=== PATIENT | female | born 1950 | race Caucasian/White ===

== ENCOUNTER 2020-12-29 09:24 | Outpatient (CLI) | payer MEDICARE, SELFPAY ==
--- NOTE | ~2020-12-29 | DEXA_ITS ---
Bone Density Report Name: Aurelio Wright Age: 70 Sex: Female Ethnicity: White Date of : 1950 Indication: postmenopausal; height loss; Referring Provider: Shanice Vidal Study: Bone densitometry was performed. Exam Date: December 29, 2020 Accession number: [id number] Bone Density: Region BMD T-score Z-score Classification AP Spine (L1-L4) 1.316 2.4 4.7 Normal Femoral Neck (Left) 0.647 -1.8 0.1 Osteopenia Total Hip (Left) 0.810 -1.1 0.5 Osteopenia Total Hip Bilateral Avg 0.811 -1.1 0.5 Osteopenia Femoral Neck (Right) 0.661 -1.7 0.2 Osteopenia Total Hip (Right) 0.811 -1.1 0.5 Osteopenia World Health Organization criteria for BMD impression classify patients as: Normal (T-score at or above -1.0), Osteopenia (T-score between -1.0 and -2.5), or Osteoporosis (T-score at or below -2.5). 10-year Fracture Risk(1): Major Osteoporotic Fracture 11% Hip Fracture 2.2% Reported Risk Factors: [place] (), Neck BMD=0.647, BMI=28.4 (1) FRAX(R) Version 3.08. Fracture probability calculated for an untreated patient. Fracture probability may be lower if the patient has received treatment. Previous Exams: Region Exam Age BMD T-score BMD Change BMD Change Date g/cm2 vs Baseline vs Previous AP Spine(L1-L4) 12/29/2020 70 1.316 2.4 0.206(18.6%)# 0.025(1.9%)* 11/17/2018 67 1.291 2.2 0.182(16.4%)# -0.035(-2.7%)* 08/27/2016 65 1.326 2.5 0.217(19.6%)# 0.145(12.3%)# 03/09/2012 61 1.181 1.2 0.072(6.5%)# 0.081(7.3%)# 09/01/2008 57 1.100 0.5 -0.009(-0.8%) 0.013(1.2%) 03/26/2005 54 1.087 0.4 -0.022(-2.0%) -0.022(-2.0%) 03/06/2002 51 1.109 0.6 Total Hip(Left) 12/29/2020 70 0.810 -1.1 -0.067(-7.6%)# -0.024(-2.8%) 11/17/2018 67 0.834 -0.9 -0.043(-4.9%)# -0.025(-3.0%) 08/27/2016 65 0.859 -0.7 -0.018(-2.0%)# 0.030(3.6%)# 03/09/2012 61 0.829 -0.9 -0.047(-5.4%)# -0.046(-5.3%)# 09/01/2008 57 0.875 -0.5 -0.001(-0.1%) -0.023(-2.5%) 03/26/2005 54 0.898 -0.4 0.021(2.4%) 0.021(2.4%) 03/06/2002 51 0.877 -0.5 Total Hip(Right) 12/29/2020 70 0.811 -1.1 -0.091(-10.1%) -0.009(-1.1%) 11/17/2018 67 0.820 -1.0 -0.082(-9.1%)# -0.024(-2.9%) 08/27/2016 65 0.844 -0.8 -0.058(-6.4%)# -0.022(-2.5%)# 03/09/2012 61 0.866 -0.6 -0.036(-4.0%)# -0.039(-4.3%)# 09/01/2008 57 0.906 -0.3 0.003(0.4%) 0.021(2.4%) 03/26/2005 54 0.884 -0.5 -0.018(-2.0%) -0.018(-2.0%) 03/06/2002 51 0.902 -0.3 *Denotes significance at 95% confidence level
--- NOTE | ~2020-12-29 | MM_ITS ---
EXAMINATION: MM screening [facility] BI w matthew HISTORY: Screening mammogram TECHNIQUE: Craniocaudal and mediolateral oblique 3-D tomosynthesis images were obtained and synthetic 2-D images were generated. CAD analysis was submitted and interpreted. COMPARISON: 11/17/2018, 09/22/2017, 08/27/2016 BREAST PARENCHYMAL COMPOSITION: There are scattered areas of fibroglandular density. FINDINGS: There is no evidence of suspicious mass, calcification, or architectural distortion to sugg est malignancy in either breast. There has been no suspicious interval change. IMPRESSION: 1. No mammographic evidence of malignancy. 2. Recommend routine screening mammography in one year. BI-RADS Category 1: Negative Reviewed, dictated and finalized at location A.
== END 2020-12-29 09:25 | disposition home or self-care (01) ==
LOC: ANHIMG 09:26
PROVIDERS: PCP Family Medicine; Visit Provider Physician Assistant
DX: Z12.31 Encounter for screening mammogram for malignant neoplasm of breast (principal); Z78.0 Asymptomatic menopausal state; M85.852 Other specified disorders of bone density and structure, left thigh; M85.851 Other specified disorders of bone density and structure, right thigh
CPT/HCPCS: 77063; 77067; 77080

== ENCOUNTER 2021-09-05 01:32 | Day surgery (SDC) | payer MEDICARE, SELFPAY ==
[2021-08-22 13:30] VITALS: BMI 27.3
[2021-09-05 12:07] VITALS: BP 144/75; PULSE 67; RESP 16; TEMP 36.5; O2SAT 97; BMI 27.5
--- NOTE | 2021-09-05 12:12 | PM.HPGS ---
History of Present Illness History of Present Illness Consent: Risks, benefits, and alternatives have been discussed and questions answered. Patient agrees to proceed with procedure. Chief complaint: history colon polyps Narrative: Aurelio Wright is a 70 year old female Referred for colon cancer screening. She has a family history of colon cancer, her mother had colon cancer. She also had a small polyp removed about 5 years ago. Review of Systems Review of Systems: All systems reviewed & are unremarkable except as noted in HPI and below PMFSH Past Medical History Medical History Bleeding ulcer (~2017) Bone spur Right big toe 2004 Left big toe 2009 Dysplasia of cervix GI bleed due to NSAIDs Heart murmur Hepatitis C antibody test negative (05/16/17) Pacemaker (~2017) Surgical History Surgical History H/O colonoscopy H/O cone biopsy of cervix (~1986) H/O mitral valve repair (~2012) S/P cataract surgery (~05/2021) right eye Status post left foot surgery Family History Family History Mother Carcinoma of colon Hypertension Sibling Hypertension Family history of irritable bowel syndrome Grandparent Family history of cardiovascular disease Diabetes mellitus Father Hypertension Family history of elevated blood lipids Family history of coronary artery disease Other Family history of congenital heart disease Social History Social History Alcohol intake: current Living arrangements: with family Meds Home Medications and Allergies Home Medications Medication Instructions Recorded Confirmed Type aspirin 81 mg tablet,delayed 81 mg PO DAILY 06/17/19 08/22/21 History release loratadine 10 mg tablet 10 mg PO DAILY 06/17/19 08/22/21 History cholecalciferol (vitamin D3) 25 25 mcg PO DAILY 03/10/20 08/22/21 History mcg (1,000 unit) capsule calcium carbonate 600 mg-vitamin 1 tablet PO DAILY tablet 08/09/20 08/22/21 History D3 10 mcg (400 unit) chewable tablet multivitamin 1 tablet PO DAILY 08/09/20 08/22/21 History atorvastatin 10 mg tablet See Rx Instructions .ROUTE 07/20/21 08/22/21 Rx .COMPLEX #90 tablet metoprolol tartrate 25 mg tablet See Rx Instructions .ROUTE 07/20/21 08/22/21 Rx .COMPLEX #90 tablet Allergies Allergy/AdvReac Type Severity Reaction Status Date / Time ibuprofen Allergy Unknown internal Verified 09/05/21 12:17 bleeding NSAIDS (Non-Steroidal Allergy Unknown Gastric Verified 09/05/21 12:17 Anti-Inflamma ulcer with hemorrhage Exam Resp: Auscultation: clear to auscultation bilaterally Cardio: Rate: regular rate Rhythm: regular rhythm GI: GI Palp: Yes Soft to palpation and No Tenderness to palpation present (GI) Assessment and Plan Assessment and plan (1) Colon cancer screening: Code(s): Z12.11 - Encounter for screening for malignant neoplasm of colon Status: Acute Assessment and Plan: Colonoscopy with possible biopsy or polypectomy or cautery or injection of substances.
[2021-09-05] MEDS: LACTATED RINGERS 1,000 ML 150 ML IV CONT (12:28)
--- NOTE | 2021-09-05 12:42 | WPDANESEPPF ---
Anes - Initial Pre Proc Eval Procedure: Operation Date: 09/05/21 13:30 Proposed Procedures p Screening Colonoscopy - Brian Harris MD Date/Time: 09/05/21 12:42 Surgeon: Brian Harris MD Pre Op Diagnosis: history colon polyps Patient Data Age: 70 Gender: F Height: 1.52 m Weight: 64 kg Last Vital Signs Temp 36.5 C 09/05/21 12:07 Pulse 67 09/05/21 12:07 Resp 16 09/05/21 12:07 BP 144/75 H 09/05/21 12:07 Pulse Ox 97 09/05/21 12:07 Allergies Allergy/AdvReac Type Severity Reaction Status Date / Time ibuprofen Allergy Unknown internal Verified 09/05/21 12:17 bleeding NSAIDS (Non-Steroidal Allergy Unknown Gastric Verified 09/05/21 12:17 Anti-Inflamma ulcer with hemorrhage Home Medications Medication Instructions Recorded Confirmed Type aspirin 81 mg tablet,delayed 81 mg PO DAILY 06/17/19 09/05/21 History release loratadine 10 mg tablet 10 mg PO DAILY 06/17/19 09/05/21 History cholecalciferol (vitamin D3) 25 25 mcg PO DAILY 03/10/20 09/05/21 History mcg (1,000 unit) capsule calcium carbonate 600 mg-vitamin 1 tablet PO DAILY tablet 08/09/20 09/05/21 History D3 10 mcg (400 unit) chewable tablet multivitamin 1 tablet PO DAILY 08/09/20 09/05/21 History atorvastatin 10 mg tablet See Rx Instructions .ROUTE 07/20/21 09/05/21 Rx .COMPLEX #90 tablet metoprolol tartrate 25 mg tablet See Rx Instructions .ROUTE 07/20/21 09/05/21 Rx .COMPLEX #90 tablet Patient hx anesthesia problems: none Family hx anesthesia problems: none Results Review: All pre-operative results and documents have been reviewed as part of the pre-operative evaluation. [facility] Past Medical History Medical History Bleeding ulcer (~2017) Bone spur Right big toe 2004 Left big toe 2009 Dysplasia of cervix GI bleed due to NSAIDs Heart murmur Hepatitis C antibody test negative (05/16/17) Pacemaker (~2017) Surgical History Surgical History H/O colonoscopy H/O cone biopsy of cervix (~1986) H/O mitral valve repair (~2012) S/P cataract surgery (~05/2021) right eye Status post left foot surgery Family History Family History Mother Carcinoma of colon Hypertension Sibling Hypertension Family history of irritable bowel syndrome Grandparent Family history of cardiovascular disease Diabetes mellitus Father Hypertension Family history of elevated blood lipids Family history of coronary artery disease Other Family history of congenital heart disease Social History Social History Alcohol intake: current Living arrangements: with family [facility]ust[facility] - Ten Final PreProcedure Day of Procedure 09/05/21 12:42 Patient weight: overweight Heart: regular rate and rhythm Lungs: clear to auscultation and normal air movement Airway: Mallampati scale class II Neurological: alert and oriented Last oral intake: >/= 8 hours ASA classification: III Emergent: no Anesthetic plan: proceed Anesthesia type and monitoring: general GIVS and standard monitoring Results Review: All pre-operative results and documents have been reviewed as part of the pre-operative evaluation. Informed Consent: The patient's anesthetic plan and its attendant risks and benefits were discussed with the patient/family/POA. Questions were solicited and answers provided to the satisfaction of the patient/family/POA.
[2021-09-05 13:04] VITALS: BP 100/64; PULSE 62; RESP 20; O2SAT 97
[2021-09-05 13:14] VITALS: BP 102/64; PULSE 60; RESP 19; O2SAT 97
[2021-09-05 13:24] VITALS: BP 104/64; PULSE 62; RESP 19; O2SAT 96
== END 2021-09-05 13:40 | disposition home or self-care (01) ==
PROVIDERS: PCP Family Medicine; Visit Provider Internal Medicine Gastroenterology
PROC: 0DJD8ZZ Inspection of Lower Intestinal Tract, Via Natural or Artificial Opening Endoscopic (ICD-10-PCS; CPT 45378; principal; 2021-09-05 13:30)
DX: Z12.11 Encounter for screening for malignant neoplasm of colon (principal); Z80.0 Family history of malignant neoplasm of digestive organs; R01.1 Cardiac murmur, unspecified; K64.8 Other hemorrhoids; Z95.0 Presence of cardiac pacemaker
CPT/HCPCS: G0105; J2704; J7120

== ENCOUNTER 2021-09-20 14:53 | Outpatient (RCR) | payer MEDICARE, SELFPAY ==
[2021-09-20] MEDS: FAMOTIDINE 20 MG TABLET PO (15:20)
[2021-09-20] MEDS: ACETAMINOPHEN 325 MG TABLET 650 MG PO (15:20)
[2021-09-20] MEDS: diphenhydrAMINE HCl CAP 25 MG CAPSULE PO (15:20)
[2021-09-20] MEDS: BEBTELOVIMAB 175 MG/2 ML VIAL IV PUSH (15:40)
[2021-09-20 15:42] VITALS: BP 142/84; PULSE 80; RESP 20; TEMP 36.4; O2SAT 96
[2021-09-20 16:23] VITALS: BP 123/69; PULSE 73; RESP 16; O2SAT 100
== END 2021-09-20 16:00 ==
LOC: AMCINF 14:53
PROVIDERS: PCP Physician Assistant; Visit Provider Internal Medicine Hematology & Oncology
DX: U07.1 COVID-19 (principal); I10 Essential (primary) hypertension
CPT/HCPCS: A9270; M0222; Q0222

== ENCOUNTER 2021-10-03 13:19 | Emergency (ER) | payer MEDICARE, SELFPAY ==
--- NOTE | ~2021-10-03 | XR_ITS ---
EXAMINATION: XR abdomen/kub 1V DATE: 10/03/2021 14:05 INDICATION: Left abdominal pain. Hematuria. TECHNIQUE: A supine view of the abdomen was obtained. COMPARISON: Abdomen radiographs 02/23/2018 FINDINGS: There are no dilated loops of bowel. There is a small volume of stool in the colon. There i s no visible urolithiasis. IMPRESSION: 1. No visible urolithiasis. Reviewed, dictated and finalized at location A. IMPRESSION: 1. No visible urolithiasis.
[2021-10-03 13:25] VITALS: BP 176/87; PULSE 80; RESP 16; TEMP 36; O2SAT 98
--- NOTE | 2021-10-03 13:45 | ED.ABDPAIN ---
HPI - Abdominal Pain General Chief Complaint: Abdominal Pain Stated Complaint: L SIDE ABD PAIN Time Seen by Provider: 10/03/21 13:45 Source: patient, family, RN notes reviewed and old records reviewed Mode of arrival: ambulatory Limitations: no limitations History of Present Illness HPI narrative: 70 year old female who presents to [facility] care accompanied by spouse with complaints of left sided abdominal pain which started yesterday afternoon. Patient reports that pain is intermittent, colicky achy and at times sharp and does radiate to the left flank area patient denies any complaints of constipation or diarrhea she has had no complaints of changes in her bowel pattern did have a colonoscopy 1 month ago. Patient does states some nausea when she has pain denies any episodes of vomiting no known fevers chills or sweats MD elicited complaint: abdominal pain Onset (ago): day(s) (1) Location: LLQ Radiation: L flank Related Data Home Medications Medication Instructions Recorded Confirmed aspirin 81 mg tablet,delayed 81 mg PO DAILY 06/17/19 09/05/21 release loratadine 10 mg tablet (Claritin) 10 mg PO DAILY 06/17/19 09/05/21 cholecalciferol (vitamin D3) 25 25 mcg PO DAILY 03/10/20 09/05/21 mcg (1,000 unit) capsule calcium carbonate 600 mg-vitamin 1 tablet PO DAILY 08/09/20 09/05/21 D3 10 mcg (400 unit) chewable tablet (Calcium 600 with Vitamin D3) multivitamin 1 tablet PO DAILY 08/09/20 09/05/21 Allergies Allergy/AdvReac Type Severity Reaction Status Date / Time ibuprofen Allergy Unknown internal Verified 09/05/21 12:17 bleeding NSAIDS (Non-Steroidal Allergy Unknown Gastric Verified 09/05/21 12:17 Anti-Inflamma ulcer with hemorrhage Review of Systems Review of Systems: CONSTITUTIONAL: Denies fever, chills, or sweats. EYES: Denies visual changes, redness, or discharge. ENT: Denies rhinorrhea, congestion, sore throat, or otalgia. CARDIOVASCULAR: Denies chest pain, palpitations, or edema. RESPIRATORY: Denies cough or dyspnea. GASTROINTESTINAL: Positive for left abdominal pain, nausea,no vomiting, or diarrhea. GENITOURINARY: Denies dysuria positive for microscopic hematuria. SKIN: Denies rash or itching. MUSCULOSKELETAL:reports some radiation of pain to left flank area no other complaints of back pain,no oint pain, or myalgia. NEUROLOGIC: Denies headache, numbness, or weakness. PSYCHIATRIC: Denies anxiety or depression. [facility] Past Medical History Medical History Bleeding ulcer (~2017) Bone spur Right big toe 2005 Left big toe 2009 Dysplasia of cervix GI bleed due to NSAIDs Heart murmur Hepatitis C antibody test negative (05/16/17) Pacemaker (~2017) Surgical History Surgical History H/O colonoscopy H/O cone biopsy of cervix (~1986) H/O mitral valve repair (~2012) S/P cataract surgery (~05/2021) right eye Status post left foot surgery Family History Family History Mother Carcinoma of colon Hypertension Sibling Hypertension Family history of irritable bowel syndrome Grandparent Family history of cardiovascular disease Diabetes mellitus Father Hypertension Family history of elevated blood lipids Family history of coronary artery disease Other Family history of congenital heart disease Social History Social History Alcohol intake: current Comments At time of signature, agree with nursing past medical, surgical, social and family history. There is no relevant family history pertinent to the presenting complaint Exam Narrative: GENERAL: Well-appearing, well-nourished, and in no acute distress. HEAD: Normocephalic, atraumatic. EYES: PERRLA and EOMI. ENT: Nares clear, no rhinorrhea or epistaxis. Mucous membranes moist. NECK: Supple.no lymphadenopathy
== END 2021-10-03 14:39 | disposition home or self-care (01) ==
PROVIDERS: Emergency Provider Registered Nurse; PCP Family Medicine
DX: R10.9 Unspecified abdominal pain (principal); R31.9 Hematuria, unspecified; Z79.82 Long term (current) use of aspirin; Z95.0 Presence of cardiac pacemaker
CPT/HCPCS: 74018; 81003; 99213; G0463

== ENCOUNTER 2021-10-05 15:40 | Emergency (ER) | payer MEDICARE, SELFPAY ==
--- NOTE | ~2021-10-05 | CT_ITS ---
EXAMINATION: CT abdomen pelvis wo con DATE: 10/05/2021 17:39 INDICATION: Left flank pain TECHNIQUE: Computed tomography (CT) of the abdomen and pelvis was performed without intravenous contr ast. The dose-length product (DLP) was 363.20 mGy-cm. Automated exposure control and iterative recons truction technique were employed. COMPARISON: None FINDINGS: There is a large hiatal hernia causing passive atelectasis in the left lower lobe. Cardiome mickey is noted. The liver, spleen, pancreas, gallbladder, and adrenal glands are normal. The right kid max is unremarkable. There are peripelvic cysts of the otherwise normal kidneys. No stones are identi fied in the kidneys, ureters, or bladder. There is no hydronephrosis or hydroureter. No pathologicall y enlarged abdominal or pelvic lymph nodes are identified. There is severe lumbar spondylosis. IMPRESSION: 1. No CT correlate for the patient's symptoms. 2. Large hiatal hernia. Reviewed, dictated and finalized at location F.
[2021-10-05 16:09] VITALS: BP 128/88; PULSE 76; RESP 18; TEMP 36.4; O2SAT 96
[2021-10-05 16:22] LABS: Basophils Percent Auto 0.4 % (0.2-1.2); Eosinophils Absolute Auto 0.1 K/mm3 (0-0.3); Eosinophils Percent Auto 2.3 % (0-4.4); Hemoglobin 13.5 g/dL (12.0-15.0); Immature Granulocyte Absolute 0.01 K/mm3 (0.00-0.031); Immature Granulocyte Percent A 0.2 % (0-0.5); Lymphocytes Absolute Auto 1.37 K/mm3 (0.9-3.2); Lymphocytes Percent Auto 24.7 % (18.3-44.2); Mean Corpuscular HGB Conc 32.9 g/dl (32-36); Mean Corpuscular Hemoglobin 30.3 pg (26-34); Mean Corpuscular Volume 91.9 fl (80-100); Mean Platelet Volume 9.4 fl (7.4-10.4); Monocytes Absolute Auto 0.5 K/mm3 (0.1-0.6); Monocytes Percent Auto 9.2 % (2.6-8.5); Neutrophils Absolute Auto 3.5 K/mm3 (1.3-6.7); Neutrophils Percent Auto 63.2 % (45.5-73.1); Platelet Count Result 187 k/mm3 (150-375); Red Blood Count 4.46 M/mm3 (4.2-5.4); Red Cell Distribution Width 13.6 % (11.5-14.5); White Blood Count 5.6 K/mm3 (4.5-10.0)
[2021-10-05 16:34] LABS: Alanine Aminotransferase 22 U/L (6-35); Albumin Level 4.1 g/dL (3.5-5.1); Alkaline Phosphatase 89 U/L (38-126); Anion Gap 5 mmol/L (8-16); Aspartate Amino Transferase 28 U/L (14-36); Bilirubin,Total 0.2 mg/dL (0.2-1.3); Blood Urea Nitrogen 18 mg/dL (7-17); Calcium 8.9 mg/dL (8.4-10.2); Carbon Dioxide 28 mmol/L (22-30); Chloride 102 mmol/L (98-107); Estimated CRCL calculation 41 ml/min; Estimated Glomerular Filt Rate > 60; Glucose 162 mg/dL (65-110); Potassium 3.6 mmol/L (3.4-5.0); Sodium 135 mmol/L (137-145)
[2021-10-05 16:34] LABS: Appearance Urine Clear (Clear); Bilirubin Urine Negative (Negative); Blood Urine 1+ (Negative); Color Urine Yellow (Yellow); Glucose Urine UA Negative (Negative); Ketones Urine Negative (Negative); Leukocyte Esterase Ur Negative LEU/UL (Negative); Nitrate Urine Negative (Negative); Protein Urine Negative (Negative); Specific Grav Ur >= 1.030 (1.001-1.035); Urobilinogen Urine 0.2 mg/dL (<2.0)
[2021-10-05 16:37] LABS: Add Urine Microscopic? YES; Mucus Urine Rare /lpf; Squamous Epithelial Cell Urine Rare /hpf (Few); WBC Urine 0-3 /hpf
[2021-10-05 17:14] VITALS: BP 132/78; PULSE 76; RESP 16; TEMP 36.8; O2SAT 100
--- NOTE | 2021-10-05 17:22 | ED.ABDPAIN ---
HPI - Abdominal Pain General Chief Complaint: Abdominal Pain Stated Complaint: L BACK/ABD PAIN Time Seen by Provider: 10/05/21 16:44 History of Present Illness HPI narrative: 70 y/o female presents to the ER for ongoing problems with left flank pain. She says it is left flank and left lower quadrant. She says that pain started on Friday. It has been coming and going. She gets nauseated when the pain comes on. She was seen at an urgent care and they thought she may have a kidney stone. She says that she felt better yesterday but then it came back again today. She denies any dysuria or hematuria. No fever or chills. Bowels have been normal. She has not had any vomiting. She has been eating and drinking fair. Related Data Home Medications Medication Instructions Recorded Confirmed aspirin 81 mg tablet,delayed 81 mg PO DAILY 06/17/19 09/05/21 release loratadine 10 mg tablet (Claritin) 10 mg PO DAILY 06/17/19 09/05/21 cholecalciferol (vitamin D3) 25 25 mcg PO DAILY 03/10/20 09/05/21 mcg (1,000 unit) capsule calcium carbonate 600 mg-vitamin 1 tablet PO DAILY 08/09/20 09/05/21 D3 10 mcg (400 unit) chewable tablet (Calcium 600 with Vitamin D3) multivitamin 1 tablet PO DAILY 08/09/20 09/05/21 Allergies Allergy/AdvReac Type Severity Reaction Status Date / Time ibuprofen Allergy Unknown internal Verified 10/05/21 18:02 bleeding NSAIDS (Non-Steroidal Allergy Unknown Gastric Verified 10/05/21 18:02 Anti-Inflamma ulcer with hemorrhage Review of Systems Review of Systems: CONSTITUTIONAL: Denies fever, chills, or sweats. EYES: Denies visual changes, redness, or discharge. ENT: Denies rhinorrhea, congestion, sore throat, or otalgia. CARDIOVASCULAR: Denies chest pain, palpitations, or edema. RESPIRATORY: Denies cough or dyspnea. GASTROINTESTINAL: Positive for left abdominal pain/left flank pain, nausea,no vomiting, or diarrhea. GENITOURINARY: Denies dysuria or hematuria SKIN: Denies rash or itching. MUSCULOSKELETAL:no extremity pain or injury NEUROLOGIC: Denies headache, numbness, or weakness. PSYCHIATRIC: Denies anxiety or depression. [facility] Past Medical History Medical History Bleeding ulcer (~2017) Bone spur Right big toe 2005 Left big toe 2009 Dysplasia of cervix GI bleed due to NSAIDs Heart murmur Hepatitis C antibody test negative (05/16/17) Pacemaker (~2017) Surgical History Surgical History H/O colonoscopy H/O cone biopsy of cervix (~1986) H/O mitral valve repair (~2012) S/P cataract surgery (~05/2021) right eye Status post left foot surgery Family History Family History Mother Carcinoma of colon Hypertension Sibling Hypertension Family history of irritable bowel syndrome Grandparent Family history of cardiovascular disease Diabetes mellitus Father Hypertension Family history of elevated blood lipids Family history of coronary artery disease Other Family history of congenital heart disease Social History Social History Alcohol intake: current Exam Narrative: GENERAL: Well-appearing, well-nourished, and in no acute distress. HEAD: Normocephalic, atraumatic. EYES: PERRLA and EOMI. ENT: Nares clear, no rhinorrhea or epistaxis. Mucous membranes moist. NECK: Supple.no lymphadenopathy CHEST: Clear to auscultation. No respiratory distress.SAO2 98% on room air HEART: Regular rate and rhythm. murmur heard. Normal peripheral pulses. ABDOMEN: Soft, tender to left abdomen intermittent with radiation to left flank some nausea with pain, no vomiting or diarrhea. nondistended, normal active bowel sounds. EXTREMITIES: Normal range of motion. No edema. SKIN: Warm, dry, no rash. NEURO: No focal deficits. Alert and oriented x3. Course Lisa
[2021-10-05] MEDS: MORPHINE SULFATE (*CRX) 4 MG/ML INJ IV PUSH (18:02)
[2021-10-05] MEDS: ONDANSETRON INJ 4 MG/2 ML VIAL IV PUSH (18:02)
[2021-10-05 18:43] LABS: Lipase 89 U/L (23-300)
[2021-10-05 18:44] LABS: Lactic Acid Reflex 1.2 mmol/L (0.7-2.0)
== END 2021-10-05 19:15 | disposition home or self-care (01) ==
PROVIDERS: Emergency Medicine; Emergency Provider Nurse Practitioner Family; PCP Family Medicine
DX: R10.32 Left lower quadrant pain (principal)
CPT/HCPCS: 36415; 74176; 80053; 81001; 83605; 83690; 85025; 96374; 96375; 99284; J2270; J2405

== ENCOUNTER 2021-10-07 18:27 | Emergency (ER) | payer MEDICARE, SELFPAY ==
--- NOTE | ~2021-10-07 | XR_ITS ---
EXAM: XR abdomen/kub 1V DATE: 10/07/2021 19:21 HISTORY: pain, constipation . COMPARISON: None available. FINDINGS: Clear lung bases. Large hiatal hernia. Normal bowel gas pattern. No organomegaly. No abnor mal abdominal calcification. Severe degenerative lumbar change. Partially visualized pacer wires and sternotomy wires. IMPRESSION: No radiographic evidence of obstruction or ileus. Reviewed, dictated and finalized at location K.
[2021-10-07 18:29] VITALS: BP 166/94; PULSE 75; RESP 16; TEMP 36.4; O2SAT 100
--- NOTE | 2021-10-07 19:39 | PC.NURSE ---
Report received from PRINCE Cox. This nurse assumed care of patient at this time.
--- NOTE | 2021-10-07 20:46 | ED.GENADULT ---
HPI - General Adult General Chief complaint: Abdominal Pain Stated complaint: abd pain Time Seen by Provider: 10/07/21 18:40 History of Present Illness HPI narrative: Patient is a 70-year-old female who presents ER with left-sided abdominal pain. Intermittent over the last few days. She has been seen in urgent care in the ER for this. She has had an unremarkable CT scan. She reports mild constipation since 2 days ago likely related to her [place]. No fevers or chills or sweats. No urinary frequency urgency or dysuria. Occasionally has relief of pain with [place]. She also reports that she is had more gas has been belching more often than typical. Pain will radiate towards her back. No aggravating factors. Related Data Home Medications Medication Instructions Recorded Confirmed aspirin 81 mg tablet,delayed 81 mg PO DAILY 06/17/19 09/05/21 release loratadine 10 mg tablet (Claritin) 10 mg PO DAILY 06/17/19 09/05/21 cholecalciferol (vitamin D3) 25 25 mcg PO DAILY 03/10/20 09/05/21 mcg (1,000 unit) capsule calcium carbonate 600 mg-vitamin 1 tablet PO DAILY 08/09/20 09/05/21 D3 10 mcg (400 unit) chewable tablet (Calcium 600 with Vitamin D3) multivitamin 1 tablet PO DAILY 08/09/20 09/05/21 Allergies Allergy/AdvReac Type Severity Reaction Status Date / Time ibuprofen Allergy Unknown internal Verified 10/07/21 18:38 bleeding NSAIDS (Non-Steroidal Allergy Unknown Gastric Verified 10/07/21 18:38 Anti-Inflamma ulcer with hemorrhage Review of Systems Review of Systems: All systems reviewed & are unremarkable except as noted in HPI and below Constitutional: Constitutional: Denies chills and Denies fever(s) ENT: Denies nasal congestion and Denies sore throat Cardiovascular: Cardiovascular: Denies chest pain, Denies rapid heart rate and Denies radiating jaw, neck or arm pain Gastrointestinal: Gastrointestinal: Reports abdominal pain, Reports constipation, Denies diarrhea, Denies nausea and Denies vomiting Genitourinary: Genitourinary: Denies nocturia, Denies dysuria and Denies pelvic pain PMFSH Past Medical History Medical History Bleeding ulcer (~2018) Bone spur Right big toe 2004 Left big toe 2009 Dysplasia of cervix GI bleed due to NSAIDs Heart murmur Hepatitis C antibody test negative (05/16/17) Pacemaker (~2017) Surgical History Surgical History H/O colonoscopy H/O cone biopsy of cervix (~1986) H/O mitral valve repair (~2012) S/P cataract surgery (~05/2021) right eye Status post left foot surgery Family History Family History Mother Carcinoma of colon Hypertension Sibling Hypertension Family history of irritable bowel syndrome Grandparent Family history of cardiovascular disease Diabetes mellitus Father Hypertension Family history of elevated blood lipids Family history of coronary artery disease Other Family history of congenital heart disease Social History Social History Alcohol intake: current Exam Narrative: GENERAL: Well-appearing, well-nourished, and in no acute distress. HEAD: Normocephalic, atraumatic. CHEST: Clear to auscultation. No respiratory distress. HEART: Regular rate and rhythm. Normal peripheral pulses. ABDOMEN: Soft, nontender, nondistended. EXTREMITIES: Normal range of motion. No edema. SKIN: Warm, dry, no rash. NEURO: Alert and oriented x3. PSYCH: Normal mood and affect. Course Course Emergency Course: Patient resting comfortably. Discussed that symptoms may be related to her hiatal hernia especially given her belching and left side discomfort. Recommend smaller meals as well as acid reflux medication. We also some Bentyl for her discomfort. I reviewed her previous labs and imaging.
[2021-10-07] MEDS: DICYCLOMINE HCL 10 MG CAPSULE 20 MG PO (20:51)
[2021-10-07 20:52] VITALS: BP 147/94; PULSE 75; RESP 17; O2SAT 98
[2021-10-07] MEDS: HYDROcodone/acetaminophen (*CRX) 5-325 MG TABLET 1 TAB PO (21:48)
== END 2021-10-07 21:53 | disposition home or self-care (01) ==
PROVIDERS: Emergency Provider Emergency Medicine; PCP Family Medicine
DX: K44.9 Diaphragmatic hernia without obstruction or gangrene (principal); R01.1 Cardiac murmur, unspecified; Z79.82 Long term (current) use of aspirin; Z95.0 Presence of cardiac pacemaker; Z98.41 Cataract extraction status, right eye
CPT/HCPCS: 74018; 99283; A9270

== ENCOUNTER 2022-02-25 14:25 | Outpatient (CLI) | payer MEDICARE, SELFPAY ==
--- NOTE | ~2022-02-25 | MM_ITS ---
EXAMINATION: MM screening [facility] BI w matthew HISTORY: Screening mammogram TECHNIQUE: Craniocaudal and mediolateral oblique 3-D tomosynthesis images were obtained and synthetic 2-D images were generated. CAD analysis was submitted and interpreted. COMPARISON: 12/29/2020, 11/17/2018, 09/22/2017 BREAST PARENCHYMAL COMPOSITION: There are scattered areas of fibroglandular density. FINDINGS: No suspicious mass, calcification, or architectural distortion are identified in either key ast to suggest malignancy. There has been no suspicious interval change. IMPRESSION: 1. No mammographic evidence of malignancy. 2. Recommend routine screening mammography in one year. BI-RADS Category 1: Negative Reviewed, dictated and finalized at location A.
== END 2022-02-25 14:26 | disposition home or self-care (01) ==
LOC: ANHIMG 14:26
PROVIDERS: PCP Family Medicine; Visit Provider Family Medicine
DX: Z12.31 Encounter for screening mammogram for malignant neoplasm of breast (principal)
CPT/HCPCS: 77063; 77067

== ENCOUNTER → 2022-08-13 10:57 | Outpatient (CLI) | payer MEDICARE, SELFPAY ==
--- NOTE | ~2022-08-13 | XR_ITS ---
EXAMINATION: XR finger 2nd RT min 2V DATE: 08/13/2022 11:16 INDICATION: Right hand second digit swelling. TECHNIQUE: 4 views of right hand second digit were obtained. COMPARISON: Right wrist radiographs 12/28/2018 FINDINGS: Bone alignment is normal. No fracture. There is moderate osteoarthritis of second metacarpo phalangeal joint and second proximal and distal interphalangeal joints. There is soft tissue swelling of the second digit. IMPRESSION: 1. Polyarticular osteoarthritis. Reviewed, dictated and finalized at location A.
== END ==
PROVIDERS: PCP Family Medicine; Visit Provider Family Medicine
DX: M79.89 Other specified soft tissue disorders (principal); M19.041 Primary osteoarthritis, right hand
CPT/HCPCS: 73140

== ENCOUNTER 2022-11-24 08:30 | Emergency (ER) | payer MEDICARE, SELFPAY ==
[2022-11-24 08:39] VITALS: BP 151/85; PULSE 66; RESP 16; TEMP 36.4; O2SAT 98
--- NOTE | 2022-11-24 08:39 | ED.FEMALEGU ---
HPI - Female Genitourinary General Chief complaint: Urogenital-Female Stated complaint: uti Time Seen by Provider: 11/24/22 09:01 Source: patient and RN notes reviewed Mode of arrival: ambulatory Limitations: no limitations History of Present Illness HPI Narrative: 71-year-old female presents with concern for urinary frequency, dysuria, urgency, suprapubic discomfort. She reports chills and trouble sleeping last night. She denies nausea, vomiting, back pain, fever. MD elicited complaint: UTI Related Data Home Medications Medication Instructions Recorded Confirmed aspirin 81 mg tablet,delayed 81 mg PO DAILY 06/17/19 11/24/22 release loratadine 10 mg tablet (Claritin) 10 mg PO DAILY 06/17/19 11/24/22 cholecalciferol (vitamin D3) 25 25 mcg PO DAILY 03/10/20 11/24/22 mcg (1,000 unit) capsule calcium carbonate 600 mg-vitamin 1 tablet PO DAILY 08/09/20 11/24/22 D3 10 mcg (400 unit) chewable tablet (Calcium 600 with Vitamin D3) multivitamin 1 tablet PO DAILY 08/09/20 11/24/22 rivaroxaban 20 mg tablet (Xarelto) 20 mg PO DAILY 04/09/22 11/24/22 Allergies Allergy/AdvReac Type Severity Reaction Status Date / Time ibuprofen Allergy Unknown internal Verified 11/24/22 08:47 bleeding NSAIDS (Non-Steroidal Allergy Unknown Gastric Verified 11/24/22 08:47 Anti-Inflamma ulcer with hemorrhage Review of Systems Review of Systems: CONSTITUTIONAL: Denies malaise, sweats, or fever. Reports chills CARDIOVASCULAR: Denies chest pain, palpitations, or edema. RESPIRATORY: Denies cough or dyspnea. GASTROINTESTINAL: Denies abdominal pain, nausea, vomiting, diarrhea GENITOURINARY: Reports dysuria, frequency, urgency, suprapubic discomfort. Denies flank pain or hematuria. SKIN: Denies rash or itching. MUSCULOSKELETAL: Denies back pain or myalgia. All systems reviewed & are unremarkable except as noted in HPI and below PMFSH Past Medical History Medical History Bleeding ulcer (~2018) Bone spur Right big toe 2004 Left big toe 2009 Dysplasia of cervix GI bleed due to NSAIDs Heart murmur Hepatitis C antibody test negative (05/16/17) Pacemaker (~2017) Surgical History Surgical History H/O colonoscopy H/O cone biopsy of cervix (~1986) H/O mitral valve repair (~2012) S/P cataract surgery (~05/2021) right eye S/P placement of cardiac pacemaker Status post left foot surgery Family History Family History Mother Carcinoma of colon Hypertension Sibling Hypertension Family history of irritable bowel syndrome Grandparent Family history of cardiovascular disease Diabetes mellitus Father Hypertension Family history of elevated blood lipids Family history of coronary artery disease Other Family history of congenital heart disease Social History Social History (Updated 04/09/22 @ 09:15 by Shea Jeronimo [facility]) Smoking status: Never smoker Alcohol intake: current Substance use: never Substance use type: does not use Lack of Transportation: No Lack of Food: Never True Current Housing: I Have Housing Concerned About Future Housing: No Difficulty Paying Gas/Electric Bills: No Difficulty Paying for Meds: No Currently Unemployed: No Education: Master's Degree or Higher Difficulty w/ Childcare or Family Care: No Living arrangements: with family Occupation/Education: retired Gender identity (if verbalized by the patient): Female Comments At time of signature, agree with nursing past medical, surgical, social and family history. There is no relevant family history pertinent to the presenting complaint Exam Narrative: GENERAL: Well-appearing, well-nourished, and in no acute distress. HEAD: Normocephalic. EYES: PERRLA, conjunctivae clear. NECK: Supple. No lymphadenopathy CHEST: C
--- NOTE | 2022-11-24 08:50 | PC.NURSE ---
0845- pt comes out of the restroom, and states that she missed the cup while urinating, and did only catch a few dribbles. instructed pt that we would try to run it on machine, but if we would need to send it for culture we would need to collect an additional specimen. pt verbalized understanding.
== END 2022-11-24 09:11 | disposition home or self-care (01) ==
PROVIDERS: Emergency Provider Nurse Practitioner; PCP Family Medicine
DX: N39.0 Urinary tract infection, site not specified (principal); R01.1 Cardiac murmur, unspecified; Z95.5 Presence of coronary angioplasty implant and graft; Z79.82 Long term (current) use of aspirin
CPT/HCPCS: 81003; 87086; 87088; 99213; G0463

== ENCOUNTER 2023-04-22 07:53 | Outpatient (CLI) | payer MEDICARE, SELFPAY ==
--- NOTE | ~2023-04-22 | DEXA_ITS ---
Bone Density Report Name: GLENN CASILLAS Age: 72 Sex: Female Ethnicity: White Date of : 1950 Indication: osteopenia; height loss; postmenopausal Referring Provider: FORTUNATO LEMUS Study: Bone densitometry was performed. Exam Date: April 22, 2023 Accession number: [id number] Bone Density: Region BMD T-score Z-score Classification AP Spine(L1-L4) 1.298 2.3 4.6 Normal Femoral Neck (Left) 0.608 -2.2 -0.1 Osteopenia Total Hip (Left) 0.782 -1.3 0.4 Osteopenia Femoral Neck (Right) 0.668 -1.6 0.4 Osteopenia Total Hip (Right) 0.800 -1.2 0.6 Osteopenia Total Hip Mean 0.791 -1.3 0.5 Osteopenia World Health Organization criteria for BMD impression classify patients as: Normal (T-score at or above -1.0), Osteopenia (T-score between -1.0 and -2.5), or Osteoporosis (T-score at or below -2.5). 10-year Fracture Risk(1): Major Osteoporotic Fracture 8.4% Hip Fracture 2.6% Reported Risk Factors: [place] (), Neck BMD=0.608, BMI=10.8 Input outside FRAX(R) limits. Adjusted to:Weight=25 kg (1) FRAX(R) Version 3.08. Fracture probability calculated for an untreated patient. Fracture probability may be lower if the patient has received treatment. Previous Exams: Region Exam Age BMD T-score BMD Change BMD Change Date g/cm2 vs Baseline vs Previous AP Spine (L1-L4) 04/22/2023 72 1.298 2.3 0.117 (9.9%)# -0.018 (-1.4%) 12/29/2020 70 1.316 2.4 0.134 (11.4%)# 0.025 (1.9%)* 11/17/2018 67 1.291 2.2 0.110 (9.3%)# -0.035 (-2.7%) 08/27/2016 65 1.326 2.5 0.145 (12.3%)# 0.145 (12.3%)# 03/09/2012 61 1.181 1.2 Total Hip(Left) 04/22/2023 72 0.782 -1.3 -0.047 (-5.7%) -0.028 (-3.5%) 12/29/2020 70 0.810 -1.1 -0.019 (-2.3%) -0.024 (-2.8%) 11/17/2018 67 0.834 -0.9 0.004 (0.5%)# -0.025 (-3.0%) 08/27/2016 65 0.859 -0.7 0.030 (3.6%)# 0.030 (3.6%)# 03/09/2012 61 0.829 -0.9 Total Hip(Right) 04/22/2023 72 0.800 -1.2 -0.066 (-7.7%) -0.011 (-1.4%) 12/29/2020 70 0.811 -1.1 -0.055 (-6.4%) -0.009 (-1.1%) 11/17/2018 67 0.820 -1.0 -0.046 (-5.4%) -0.024 (-2.9%) 08/27/2016 65 0.844 -0.8 -0.022 (-2.5%) -0.022 (-2.5%) 03/09/2012 61 0.866 -0.6 *Denotes significance at 95% confidence level, LSC for AP Spine = 0.022 g/cm2, LSC for Total Hip = 0.027 g/cm2 # Denotes dissimilar scan types or analysis methods Clinical Information Provided by Patient: Has used the following medications: Vitamin D, Calcium Patient luis hoskins
--- NOTE | ~2023-04-22 | MM_ITS ---
EXAMINATION: MM screening elvin BI w matthew HISTORY: Screening mammogram TECHNIQUE: Craniocaudal and mediolateral oblique 3-D tomosynthesis images were obtained and synthetic 2-D images were generated. CAD analysis was submitted and interpreted. COMPARISON: 02/21/2022, 12/29/2020, 11/17/2018 bilateral screening mammogram examinations BREAST PARENCHYMAL COMPOSITION: There are scattered areas of fibroglandular density. FINDINGS: There is no evidence of suspicious mass, calcification, or architectural distortion to sugg est malignancy in either breast. There has been no suspicious interval change. IMPRESSION: 1. No mammographic evidence of malignancy. 2. Recommend routine screening mammography in one year. BI-RADS Category 1: Negative Reviewed, dictated and finalized at location A. [employer]
== END 2023-04-22 07:54 | disposition home or self-care (01) ==
PROVIDERS: PCP Family Medicine; Visit Provider Family Medicine
DX: Z12.31 Encounter for screening mammogram for malignant neoplasm of breast (principal); Z87.39 Personal history of other diseases of the musculoskeletal system and connective tissue; M85.852 Other specified disorders of bone density and structure, left thigh; M85.851 Other specified disorders of bone density and structure, right thigh
CPT/HCPCS: 77063; 77067; 77080

== ENCOUNTER 2023-09-08 11:44 | Outpatient (CLI) | payer MEDICARE, SELFPAY ==
--- NOTE | ~2023-09-08 | XR_ITS ---
AP and lateral views of the right hip Clinical history: Pain Findings: No acute fracture or dislocation is seen. Osseous alignment is anatomic. Right hip joint sp lynn is preserved. Soft tissues are unremarkable. There is degenerative spondylosis of the lower lumba r spine. Impression: No significant abnormality of the right hip is seen. Degenerative spondylosis of the lower lumbar spine. Reviewed, dictated and finalized at location . Impression: No significant abnormality of the right hip is seen. Degenerative spondylosis of the lower lumbar spine.
== END 2023-09-08 11:45 ==
LOC: GOSHIMG 11:48
PROVIDERS: PCP Family Medicine; Visit Provider Family Medicine
DX: M47.896 Other spondylosis, lumbar region (principal)
CPT/HCPCS: 73502

== ENCOUNTER 2023-10-25 09:13 | Emergency (ER) | payer MEDICARE, SELFPAY ==
[2023-10-25 09:24] VITALS: BP 133/82; PULSE 69; RESP 16; TEMP 36.9; O2SAT 99
--- NOTE | 2023-10-25 09:34 | ED.FEMALEGU ---
HPI - Female Genitourinary General Chief complaint: Urogenital-Female Stated complaint: Uti Symptoms Time Seen by Provider: 10/25/23 09:30 Source: patient Mode of arrival: ambulatory Limitations: no limitations History of Present Illness HPI Narrative: Gray is a 72-year-old female patient presenting to the clinic today with complaints of possible urinary tract infection. She reports yesterday morning she started having urinary urgency and last night she developed stinging with urination. Denies any fever or body aches. States that she has had some chills. Denies any flank pain or abdominal pain. Related Data Home Medications Medication Instructions Recorded Confirmed aspirin 81 mg tablet,delayed 81 mg PO DAILY 06/17/19 09/08/23 release loratadine 10 mg tablet (Claritin) 10 mg PO DAILY 06/17/19 09/08/23 cholecalciferol (vitamin D3) 25 25 mcg PO DAILY 03/10/20 09/08/23 mcg (1,000 unit) capsule calcium carbonate 600 mg-vitamin 1 tablet PO DAILY 08/09/20 09/08/23 D3 10 mcg (400 unit) chewable tablet (Calcium 600 with Vitamin D3) multivitamin 1 tablet PO DAILY 08/09/20 09/08/23 rivaroxaban 20 mg tablet (Xarelto) 20 mg PO DAILY 04/09/22 09/08/23 Allergies Allergy/AdvReac Type Severity Reaction Status Date / Time ibuprofen Allergy Unknown internal Verified 09/08/23 11:06 bleeding NSAIDS (Non-Steroidal Allergy Unknown Gastric Verified 09/08/23 11:06 Anti-Inflamma ulcer with hemorrhage Review of Systems Review of Systems: Pertinent positives per HPI. Patient denies any fever, chills, rash, headache, visual changes, dizziness, cough, runny nose, sore throat, shortness of breath, chest pain, palpitations, nausea, vomiting, diarrhea, constipation, abdominal pain PMFSH Past Medical History Medical History Bleeding ulcer (~2017) Bone spur Right big toe 2004 Left big toe 2009 Dysplasia of cervix GI bleed due to NSAIDs Heart murmur Hepatitis C antibody test negative (05/16/17) Pacemaker (~2017) Surgical History Surgical History H/O colonoscopy H/O cone biopsy of cervix (~1986) H/O mitral valve repair (~2012) S/P cataract surgery (~05/2021) right eye S/P placement of cardiac pacemaker Status post left foot surgery Family History Family History Mother Carcinoma of colon Hypertension Sibling Hypertension Family history of irritable bowel syndrome Grandparent Family history of cardiovascular disease Diabetes mellitus Father Hypertension Family history of elevated blood lipids Family history of coronary artery disease Other Family history of congenital heart disease Social History Social History Smoking status: Never smoker Alcohol intake: current Substance use: never Substance use type: does not use Lack of Transportation: No Lack of Food: Never True Current Housing: I Have Housing Concerned About Future Housing: No Difficulty Paying Gas/Electric Bills: No Difficulty Paying for Meds: No Currently Unemployed: No Education: Master's Degree or Higher Difficulty w/ Childcare or Family Care: No Living arrangements: with family Occupation/Education: retired Gender identity (if verbalized by the patient): Female Comments At the time of my signature, I reviewed and agree with the nursing past medical, surgical, social, and family history. There is no relevant family history pertinent to the patient complaint. Exam Narrative: General: Well-developed, well nourished, in no apparent distress. Head: Normocephalic, atraumatic. Cardio: Regular rate and rhythm, s1 and s2 normal, no murmur appreciated. Resp: Clear to auscultation bilaterally, no rhonchi, rales, wheezing or rubs. Abdomen: Soft, pliable, bowel
== END 2023-10-25 09:42 | disposition home or self-care (01) ==
PROVIDERS: Emergency Provider Nurse Practitioner Family; PCP Family Medicine
DX: N39.0 Urinary tract infection, site not specified (principal); B96.20 Unspecified Escherichia coli [E. coli] as the cause of diseases classified elsewhere; Z95.0 Presence of cardiac pacemaker
CPT/HCPCS: 81003; 87077; 87086; 87088; 87186; 99213; G0463

== ENCOUNTER 2024-03-05 09:32 | Emergency (ER) | payer MEDICARE, SELFPAY ==
[2024-03-05 09:41] VITALS: BP 138/79; PULSE 74; RESP 16; TEMP 36.5; O2SAT 99
--- NOTE | 2024-03-05 09:43 | ED.SKABFB ---
HPI - Skin/Abscess/Foreign Bdy General Chief complaint: Skin/Abscess/Foreign Body Stated complaint: Cyst Right Hip Time Seen by Provider: 03/05/24 09:43 Source: patient, RN notes reviewed and old records reviewed Mode of arrival: ambulatory Limitations: no limitations History of Present Illness HPI narrative: 73-year-old female to Express Care with complaint of cyst to the right hip since yesterday. Patient reports discomfort with palpation. Denies drainage, fever, itching, pertinent medical history. Patient resting comfortably in exam in no acute distress. Related Data Home Medications Medication Instructions Recorded Confirmed aspirin 81 mg tablet,delayed 81 mg PO DAILY 06/17/19 03/05/24 release loratadine 10 mg tablet (Claritin) 10 mg PO DAILY 06/17/19 03/05/24 cholecalciferol (vitamin D3) 25 25 mcg PO DAILY 03/10/20 03/05/24 mcg (1,000 unit) capsule calcium 600 mg (as carbonate)-vit 1 tablet PO DAILY 08/09/20 03/05/24 D3 10 mcg (400 unit) chewable tablet (Calcium 600 with Vitamin D3) multivitamin 1 tablet PO DAILY 08/09/20 03/05/24 rivaroxaban 20 mg tablet (Xarelto) 20 mg PO DAILY 04/09/22 03/05/24 Allergies Allergy/AdvReac Type Severity Reaction Status Date / Time ibuprofen AdvReac Unknown internal Verified 03/05/24 09:45 bleeding NSAIDS (Non-Steroidal AdvReac Unknown Gastric Verified 03/05/24 09:45 Anti-Inflamma ulcer with hemorrhage Review of Systems Review of Systems: All systems reviewed & are unremarkable except as noted in HPI and below Constitutional: Constitutional: Reports no additional constitutional complaints Eyes: Eyes: Reports no additional eye complaints ENT: Reports system reviewed and no additional complaints, except as documented Cardiovascular: Cardiovascular: Reports no additional cardiovascular complaints, Denies chest pain and Denies dyspnea Respiratory: Respiratory: Reports no additional respiratory complaints, Denies cough and Denies dyspnea Musculoskeletal: Musculoskeletal: Reports no additional musculoskeletal complaints Integumentary/Breasts: Skin/Breast: Reports as per HPI, Reports swelling and Reports erythema Comments: Right hip Neurologic: Reports system reviewed and no additional complaints, except as documented Psychiatric: Psychiatric: Reports no additional psychiatric complaints PMFSH Past Medical History Medical History Bleeding ulcer (~2017) Bone spur Right big toe 2005 Left big toe 2009 Dysplasia of cervix GI bleed due to NSAIDs Heart murmur Hepatitis C antibody test negative (05/16/17) Pacemaker (~2017) Surgical History Surgical History H/O colonoscopy H/O cone biopsy of cervix (~1986) H/O mitral valve repair (~2012) S/P cataract surgery (~05/2021) right eye S/P placement of cardiac pacemaker Status post left foot surgery Family History Family History Mother Carcinoma of colon Hypertension Sibling Hypertension Family history of irritable bowel syndrome Grandparent Family history of cardiovascular disease Diabetes mellitus Father Hypertension Family history of elevated blood lipids Family history of coronary artery disease Other Family history of congenital heart disease Social History Social History Smoking status: Never smoker Alcohol intake: current Substance use: never Substance use type: does not use Lack of Transportation: No Lack of Food: Never True Current Housing: I Have Housing Concerned About Future Housing: No Difficulty Paying Gas/Electric Bills: No Difficulty Paying for Meds: No Currently Unemployed: No Education: Master's Degree or Higher Difficulty w/ Childcare or Family Care: No Living arrangements: with family Occupation/Education: retired Gender identity (if verbalized by the patient): Female Comments At the time of my signature, I reviewed and agree with the nursing past medical, surgical, social, and family history. There is no relevant family history pertinent to the patient complaint. Exam Const: General: cooperative, healthy appearing, comfortable, no acute distress, alert and well nourished Nutritional Appearance: well nourished Orientation/consciousness: patient oriented x3 Limitations: no limitations HENMT: Head: normal to inspection Ears: external ears normal Face/Nose/Sinus: Normal external nose present, Normal nares present, normal facial exam, No erythema and No edema Face and sinus: normal facial exam, no erythema and no edema Mouth: Yes Normal oral and palatal mucosa present Eyes: General: appearance normal, both eyes and all related structures Neck: Neck: normal visual inspection, full ROM and no meningeal signs Chest: Chest palpation & inspection: normal inspection of the chest Resp: Effort & Inspection: normal respiratory effort and able to speak in complete sentences Cardio: Jugular venous distension: no JVD Rate: regular rate Back/Spine/Pelvis: Cervical Spine: cervical ROM normal Skin: General skin exam: normal color, turgor normal and lesion Lesions: lesion noted cyst right lateral hip size (1cm x 1cm), borders well-defined, color red, consistency firm, morphology dome-shaped, surface and tender Neuro: General: patient oriented x3, gait normal, moves all extremities and no meningeal signs Speech: normal speech Gait exam (Neuro): Normal gait present Extrem: General: normal to inspection, full ROM and capillary refill normal Psych: Appearance: grossly normal and well kempt Course Course Emergency Course: Some parts of this dictation were generated by voice recognition software and may contain typographical and/or grammatical inaccuracies. Level of Care: Express Care Visit Vital Signs Vital signs: Vital Signs Temperature 36.5 C 03/05/24 09:41 Pulse Rate 74 03/05/24 09:41 Respiratory Rate 16 03/05/24 09:41 Blood Pressure 138/79 03/05/24 09:41 Pulse Oximetry 99 03/05/24 09:41 Temperature 36.5 C 03/05/24 09:41 Pulse Rate 74 03/05/24 09:41 Respiratory Rate 16 03/05/24 09:41 Blood Pressure 138/79 03/05/24 09:41 Pulse Oximetry 99 03/05/24 09:41 reviewed MDM - Skin/Abscess/Foreign Bdy MDM Narrative Medical decision making narrative: 73-year-old female to Express Care with complaint of cyst to the right hip since yesterday. Patient reports discomfort with palpation. Denies drainage, fever, itching, pertinent medical history. Patient resting comfortably in exam in no acute distress. On exam, 1 cm x 1 cm erythematous dome shaped, firm, tender lesion to right lateral hip. Consistent with early abscess. Patient is sitting comfortably in exam room nontoxic in appearance. Patient appropriate for outpatient treatment and follow-up. Discharge instructions reviewed with patient, as well as provided in writing per nursing staff. The instructions also include specific and strict return/GO TO THE ER as well as f/u information. All questions have been answered, and the patient deny any further questions with discharge and discharge plan. Some parts of this dictation were generated by voice recognition software and may contain typographical and/or grammatical inaccuracies. Differential Diagnosis Differential diagnosis: Likely abscess of skin or subcutaneous tissue, viral exanthem, dermatophytosis, urticaria, herpes zoster, allergic reaction to drug, cellulitis, eczema, insect bites, impetigo and contact dermatitis Discharge Plan Discharge Clinical Impression: Abscess Patient Disposition: Home, Self-Care Condition: Stable Instructions: Abscess (ED) Additional Instructions: please review attached instructions regarding abscess and implement suggestions as tolerated please finish entire course of antibiotic treatment as discussed, please wear a different style of underwear for the next 10-14 days. if symptoms recur, please follow-up with your primary care provider for further evaluation and treatment for new or worsening symptoms please go directly to the emergency department Prescriptions: New cephalexin 500 mg capsule 500 mg PO Q12H Qty: 10 0RF No Action aspirin 81 mg tablet,delayed release (DR/EC) 81 mg PO DAILY loratadine [Claritin] 10 mg tablet 10 mg PO DAILY cholecalciferol (vitamin D3) 25 mcg (1,000 unit) capsule 25 mcg PO DAILY Calcium 600 with Vitamin D3 600 mg(1,500mg) -400 unit tablet,chewable 1 tablet PO DAILY multivitamin Tablet 1 tablet PO DAILY Xarelto 20 mg tablet 20 mg PO DAILY Rx Instructions: must administer with evening meal atorvastatin 10 mg tablet See Rx Instructions .ROUTE .COMPLEX Qty: 90 0RF Dose Instruction: TAKE 1 TABLET BY MOUTH DAILY Rx Instructions: TAKE 1 TABLET BY MOUTH DAILY metoprolol tartrate 25 mg tablet See Rx Instructions .ROUTE .COMPLEX Qty: 90 0RF Dose Instruction: TAKE 1 TABLET BY MOUTH DAILY Rx Instructions: TAKE 1 TABLET BY MOUTH DAILY Follow-up/Referrals: Salima Mcmillan DO [Primary Care Provider] -
== END 2024-03-05 10:00 | disposition home or self-care (01) ==
PROVIDERS: Emergency Provider Nurse Practitioner Family; PCP Family Medicine
DX: L02.415 Cutaneous abscess of right lower limb (principal); R01.1 Cardiac murmur, unspecified; Z95.0 Presence of cardiac pacemaker; Z79.82 Long term (current) use of aspirin; Z79.01 Long term (current) use of anticoagulants
CPT/HCPCS: 99213; G0463

== ENCOUNTER 2024-10-19 10:56 | Outpatient (CLI) | payer MEDICARE, SELFPAY ==
--- NOTE | ~2024-10-19 | US_ITS ---
US soft tissue UE RT 10/19/2024 11:06 Indication: Second finger swelling. X-ray showed osteoarthritis. Procedure: High-resolution Limited ultrasound of the right second finger Comparison: No prior studies for comparison. Findings: In the area of palpable concern along the palmar aspect of the right second finger proximal phalanx there is an oval slightly hypoechoic mass measuring 2.1 x 2 x 0.9 cm with internal vasculari ty, horizontal oriented striations, mixed posterior attenuation. Impression: 1: Soft tissue mass along the palmar aspect of the right second finger proximal phalanx measuring 2.1 cm. Considerations include giant cell tumor, foreign body reaction, fibroma of tendon sheath, rheuma toid nodule and soft tissue hemangioma. Reviewed, dictated and finalized at location A. Impression: 1: Soft tissue mass along the palmar aspect of the right second finger proximal phalanx measuring 2.1 cm. Considerations include giant cell tumor, foreign bod y reaction, fibroma of tendon sheath, rheumatoid nodule and soft tissue hemangi haley.
== END 2024-10-19 10:57 | disposition home or self-care (01) ==
LOC: GOSHIMG 10:56
PROVIDERS: PCP Family Medicine; Visit Provider Family Medicine
DX: M79.89 Other specified soft tissue disorders (principal)
CPT/HCPCS: 76882

== ENCOUNTER 2024-11-22 13:23 | Outpatient (CLI) | payer MEDICARE, SELFPAY ==
--- NOTE | 2024-11-22 13:28 | ECG_ITS ---
Test Date: 2024-11-22 13:47:34 Measurements Intervals [place] Rate: 73 P: -36 SC: 182 QRS: 50 QRSD: 84 T: 18 QT: 397 QTc: 439 Interpretive Statements SINUS RHYTHM No previous ECG available for comparison Electronically Signed On 11-22-2024 15:25:14 CDT by Choco Ramos M.D.
--- OUTSIDE RECORDS SUMMARY | 2024-11-22 13:30 | XMS_ITS | Clinical Summary ---
Author Organization [facility] [address] Address [address] [place] [address] Care Team Providers Care Community Coordinator For [employer] Name Role Phone Salima Mcmillan Primary Care Provider [phone]- [phone] Allergies Active Allergy Reactions Criticality Noted Date Comments Nsaids (Non-Steroidal Anti-Inflammatory Drug) Other (See comments) High 01/16/2021 Internal bleeding Medications multivitamin tablet tablet take 1 by Oral route once 0 0 01/26/2013 Active cholecalciferol (cholecalcifero l) 1,000 unit tablet take 1 by Oral route once 0 0 01/26/2013 Active calcium carbonate-vitam in D3 (CALCIUM 600 + D,3,) 1500 mg (600 mg elemental) -400 units per tablet 0 0 01/26/2013 Active metoprolol (LOPRESSOR) 25 mg tablet take 1/2 Tablet by oral route 2 times every day 0 0 04/15/2013 Active aspirin (ASPIR-81) 81 mg tablet take 1 Tablet by oral route every day 0 0 06/01/2015 Active atorvastatin (LIPITOR) 10 mg tablet take 1 tablet by oral route every day at bedtime 0 0 06/01/2015 Active loratadine 10 mg capsule Take by mouth. Active Xarelto 20 mg tablet TAKE 1 TABLET BY MOUTH DAILY 90 tablet 3 01/14/2024 Active Active Problems Problem Noted Date Diagnosed Date SSS (sick sinus syndrome) 01/12/2019 Cardiac pacemaker in situ 03/04/2018 Overview (03/03/2022): [employer] Paulo Dual Pacemaker. Dx; SSS. DOI 03/04/[address] Alatorre. Ione remote monitoring Q3 mo, office pacer checks Q1 yr. Battery Advisory Safety Notification-possible incomplete mixing of epoxy in the manufacturing process. S/P mitral valve repair 02/25/2017 Encounters Date Type Department Care Team Description 11/22/2024 Telephone [facility] Cardiology [address] [facility] [address] [place] [address] Houston Alatorre MD 10/20/2024 11:30 AM CDT Ancillary Procedure [facility] Cardiology [address] [place] [address] [address] [place] [phone] Sick sinus syndrome (HCC); Cardiac pacemaker in situ 08/24/2024 7:45 AM CDT Ancillary Procedure [facility] Cardiology [address] [facility] [address], [place] [address] Cardiac pacemaker in situ (Primary Dx); Sick sinus syndrome (HCC); Paroxysmal atrial fibrillation (HCC) from Last 3 Months Medical History Medical History Date Comments Hypertension Hypertension Hx Other Medical dyslipidemia Heart disease Family History Medical History Relation Name Comments Coronary artery disease Father Varinder Sanches nary Artery Bypass Graft; Heart failure Father Varinder Congestive Hea rt Failure; Cause of : Congestive Heart Failure Hypertension Father Varinder Heart attack Maternal Grandfather Robbin Myocard ial Infarction; Cause of : Myocardial Infarction Heart attack Maternal Grandmother Melina Myocard ial Infarction; Cause of : Myocardial Infarction Hypertension Mother Carmen Relation Name Status Comments Father Varnider Maternal Grandfather Robbin Maternal Grandmother Melina Mother Carmen Social History Tobacco Use Types Packs/Day Years Used Date Smoking Tobacco: Never Smokeless Tobacco: Never Alcohol Use Standard Drinks/Week Comments Yes 0 (1 standard drink = 0.6 oz pur e alcohol) Comments Unknown Sex and Gender Information Value Date Recorded Sex Assigned at Not on file 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 Gender Identity Not on file Sexual Orientation Not on file Obstetrics History Last Filed Vital Signs Vital Sign Reading Time Taken Comments Blood Pressure 138/70 12/17/2023 10:34 AM CDT Pulse 77 12/17/2023 10:34 AM CDT Temperature - - Respiratory Rate 14 02/25/2017 11:22 AM CDT Oxygen Saturation 98% 12/17/2023 10:34 AM CDT Inhaled Oxygen Concentration - - Weight 63 kg (138 lb 12.8 oz) 12/17/2023 10:34 A M CDT Height 154.9 cm (5' 1) 12/17/2023 10:34 AM CDT Body Mass Index 26.23 12/17/2023 10:34 AM CDT Plan of Treatment Health Maintenance Due Date Last Done Comments Colon Cancer Screening-Colonoscopy 1950 Depression Screening 1950 Fall Risk Assessment 1950 Hepatitis C Screening 1950 Osteoporosis Screening-Bone Density Scan 1950 DTaP/Tdap/Td Vaccine (1 - Tdap) 11/30/1959 Hepatitis B Screening 1966 Well Visit 65+ 2013 Pneumococcal vaccine 65+ (2 of 2 - PPSV23) 02/24/2016 02/23/2015 Zoster Vaccine (2 of 2) 04/08/2019 02/11/2019 Influenza Vaccine (#1) 2025 3, 02/18/2019, 01/19/2018, Additional history exists Medical Devices Implanted Type Area Specification Consultant Device Identifier Shelf Expiration Date Model / Serial / Lot Pacemaker-02/04 Implanted:02/04 by Houston Alatorre MD (Quantity not on file) Pacemaker Chest [employer] SSS Procedures Procedure Name Priority Date/Time Associated Diagnosis Comments DEVICE CHECK - IN OFFICE Routine 10/20/2024 11:19 AM CDT Sick sinus syndrome (HCC) Cardiac pacemaker in situ DEVICE CHECK - REMOTE Routine 08/24/2024 10:43 AM CDT Sick sinus syndrome (HCC) Paroxysmal atrial fibrillation (HCC) from Last 3 Months Results * DEVICE CHECK - IN OFFICE (10/20/2024 11:19 AM CDT) Anatomical Region Laterality Modality Other Narrative 10/26/2024 12:[address] Paulo Dual Pacemaker. Dx; SSS. DOI 03/04/[address] Alatorre. Bryan remote monitoring Q3 mo, office pacer checks Q1 yr. Supervising MD: Dr Josue. Office DDD Pacemaker interrogation demonstrated normal device function. Appropriate lead measurements noted. Left pectoral incision well healed without signs of infection noted. Battery function-2.98V, 4.2-4.9 years remaining battery life to VALDO. Presenting rhythm-ASVS (SR). AP-16% FILAMENT CUTTER-<1%. 5 mode switch episode recorded, iegm's AT/AF. No ventricular high rate episodes noted. No programming changes made today. See scanned report. Ione remote f/u 01/25/2025. Office pacemaker f/u 02/22/2026. Selina Herbert RN us Houston Alatorre MD CV CARDIAC SERVICES PROC EDURES Final Result * DEVICE CHECK - REMOTE (08/24/2024 10:43 AM CDT) Anatomical Region Laterality Modality Other Narrative 08/26/2024 7:[address] Paulo Dual Pacemaker. Dx; SSS. DOI 03/04/[address] Alatorre. Ione remote monitoring Q3 mo, office pacer checks Q1 yr. Battery Advisory Safety Notification-possible incomplete mixing of epoxy in the manufacturing process. Routine DDD Pacemaker Remote. Transmission attached. Battery status: 2.98 V, 4.3-5.1 years remaining battery life to VALDO. Stable lead impedances, pacing and sensing thresholds. Presenting rhythm: -AP/VS AP-8.4%, FILAMENT CUTTER-< 1% 34 AMS episodes noted, longest episode was 2 hours and 21 minutes in duration, IEGM demonstrates AFib. AF [place] < 1%. 1 Ventricular high rate episodes detected, IEGM demonstrates NSVT for 2 seconds. Medications: Xarelto 20 mg, ASA 81 mg, metoprolol 25 mg See scanned report. Office pacemaker follow up: 10/20/24 Ione remote f/u 5 months. Yadiel Whitten RN us Houston Alatorre MD CV CARDIAC SERVICES PROC EDURES Final Result from Last 3 Months Insurance AETNA MEDICARE AETNA MEDICARE Care Teams Community Coordinator For [employer] Relationship Specialty Start Date End Date Salima Mcmillan DO PCP - General Family Medicine 05/19/19
--- OUTSIDE RECORDS SUMMARY | 2024-11-22 13:30 | XMS_ITS | Encounter Summary ---
Author Organization [facility] Address [address] [place] [address] Care Team Providers Care Bore Mill Operator Name Role Phone Salima Mcmillan DO Primary Care Provider [phone]- [phone] Encounter Details Date Type Department Care Team (Late st Contact Info) Description 11/22/2024 Telephone [facility] Group Cardiology [address] [facility] [address] [facility] [address] [place] [address] Houston Alatorre MD [address] [facility] [address] [place] [address] Social History Tobacco Use Types Packs/Day Years Used Date Smoking Tobacco: Never Smokeless Tobacco: Never Alcohol Use Standard Drinks/Week Comments Yes 0 (1 standard drink = 0.6 oz pur e alcohol) Comments Unknown Sex and Gender Information Value Date Recorded Sex Assigned at Not on file 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 I informed her that I did not receive the CRMD form for this patient. I gave her the testing center fax number and she is going to re fax that form. * Telephone Encounter - Jeri Claros RN - 11/22/2024 12:51 PM CDT Will forward to Rhea. * Telephone Encounter - Lyn Fitzgerald - 11/22/2024 11:46 AM CDT [facility] requesting a call back with an update on the form that she sentto get filled out for the pts pacemaker thank you Contact: documented in this encounter Plan of Treatment Not on file documented as of this encounter Visit Diagnoses Not on filedocumented in this encounter Care Teams Bore Mill Operator Relationship Specialty Start Date End Date Salima Mcmillan DO PCP - General Family Medicine 05/19/19 documented as of this encounter
--- OUTSIDE RECORDS SUMMARY | 2024-11-22 13:30 | XMS_ITS | Clinical Summary ---
Author Organization [facility] Address [address] [place] [address] Care Team Providers Care Etl Manager Name Role Phone Emanuel Jones MD Primary Care Provider [phone] Source Comments [facility],non-owned Affiliates and Associated Physician Practices is amultiple site organization consisting of ambulatory clinics and hospital sitesin [place], [place], [place] and [place]. This disclosure is being madepursuant to the Care Everywhere program and may not contain all information available regarding this patient. Last updated 18.[facility] Social History Tobacco Use Types Packs/Day Years Used Date Smoking Tobacco: Never Assessed Comments Unknown Sex and Gender Information Value Date Recorded Sex Assigned at Not on file Legal Sex Female 11:38 AM COTTON CONVERTER Gender Identity Not on file Sexual Orientation Not on file Plan of Treatment Health Maintenance Due Date Last Done Comments BONE DENSITY TESTING 1950 COLOGUARD (AGES 45-75) - COL ON CA SCREENING 1948 COLON MONITORING 1948 COLONOSCOPY - COLON CA SCREENING 1948 CT COLONOGRAPHY - COLON CA SCREENING 1950 Colorectal Cancer Screening 1948 FIT - COLON CA SCREENING 1948 FLEX SIG - COLON CA SCREENING 1950 MAMMOGRAM 1950 HEPATITIS C SCREENING 11/25/1966 DTAP/TDAP/TD VACCINES (1 - Tdap) 11/30/1967 PNEUMOCOCCAL VACCINE 50+ (1 of 1 - PCV) 1998 ZOSTER VACCINE (1 of 2) 1998 LIPID TESTING 08/21/2015 08/20/2010 Respiratory Syncytial Virus (RSV) Vaccine Pt: or over 60 yrs (1 - 1-dose 75+ series) 11/30/2023 COVID-19 VACCINE ( - 2023-2 5 season) 2024 DEPRESSION SCREENING 05/05/2024 INFLUENZA VACCINE (#1) 2025 HEPATITIS B VACCINE Aged Out No longe r eligible based on patient's age to complete this topic HIB VACCINE Aged Out No longer eligi ble based on patient's age to complete this topic HPV VACCINE Aged Out No longer eligi ble based on patient's age to complete this topic MENINGOCOCCAL (Group B) VACC INE SHARED DECISION-MAKING Aged Out No longer eligibl e based on patient's age to complete this topic MENINGOCOCCAL GROUPS A/C/Y/W VACCINE Aged Out No longer eligible b ased on patient's age to complete this topic Procedures Procedure Name Priority Date/Time Associated Diagnosis Comments LIPID PROFILE STAT 08/20/2010 8:20 PM CDT from Last 3 Months or Most Recently Relevant to Health Maintenance Results * (ABNORMAL) LIPID PROFILE (08/20/2010 8:20 PM CDT) Cholesterol 223(H) <200 mg/dl [facility] Triglycerides 208(H) <150 mg/dl [facility] HDL Cholesterol 61 >=40 mg/dl [facility] VLDL Calculated 42(H) <=30 mg/dl [facility] LDL Calculated 120(H) <100 mg/dl [facility] Cholesterol Risk Factor 3.66 <4.45 [facility] Comment Lipid [facility] Comment: Normal values based on [place] Heart [employer] guidelines. LIPID PROFILE GUIDELINES Total Cholesterol Category -------- Less than 200 mg/dl Desirable level that puts you at lower risk for heart disease. A cholesterol level of 200 mg/dl or greater increases your risk. 200 to 239 mg/dl Borderline high 240 mg/dl and above High blood cholesterol. A person with this level has more than twice the risk of heart disease compared to someone whose cholesterol is below 200 mg/dl. HDL Cholesterol Category -------- Less than 40 mg/dl Low HDL cholesterol. A major risk factor for heart disease. 40 to 59 mg/dl Borderline low. 60 mg/dl and above High HDL cholesterol. An HDL of 60 and above is considered protective against heart disease. LDL Cholesterol Category -------- Less than 100 mg/dl Optimal 100 to 129 mg/dl Near or above optimal 130 to 159 mg/dl Borderline high 160 to 189 mg/dl High 190 mg/dl and above Very high Triglyceride Category -------- Less than 150 mg/dl Normal 150 to 199 mg/dl Borderline high 200 to 499 mg/dl High 500 mg/dl and above Very high BLOOD SPECIMEN / Unknown 08/20/2010 8:20 PM CDT 08/20/2010 8:20 PM CDT Provider Unknown LAB - CHEMISTRY ORDERABLES Lidia clarke Result Performing Organization Address City/State/[facility] Co de Phone Number [facility] [address] [place] [address] from Last 3 Months or Most Recently Relevant to [place] [address] UHC MANAGED MEDICARE ADV Care Teams Etl Manager Relationship Specialty Start Date End Date Emanuel Jones MD [address] [place], [place] [id number] PCP - General 02/26/18
--- OUTSIDE RECORDS SUMMARY | 2024-11-22 13:30 | XMS_ITS | Referral Summary ---
Author Organization [facility] [address] [facility] [address] [facility] [address] [place] [address] Care Team Providers Care Packing Line Operator Name Role Phone Salima Mcmillan Primary Care Provider [phone] Encounters Date Type Department Care Team Description 11/22/2024 Telephone [facility] Medical Group Cardiology [address] [facility] [address] [place] [address] Houston Alatorre MD 10/20/2024 11:30 AM CDT Ancillary Procedure [facility] Medical [facility] Cardiology [address] [facility] [address] [place] [address] Sick sinus syndrome (HCC); Cardiac pacemaker in situ 08/24/2024 7:45 AM CDT Ancillary Procedure [facility] Medical [facility] Cardiology [address] [facility] [address] [place] [address] Cardiac pacemaker in situ (Primary Dx); Sick sinus syndrome (HCC); Paroxysmal atrial fibrillation (HCC) from Last 3 Months Allergies Active Allergy Reactions Criticality Noted Date [...] manufacturing process. 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 DOI 03/04/[address] Alatorre. Mangham remote monitoring Q3 mo, office pacer checks Q1 yr. Supervising MD: Dr Josue. Office DDD Pacemaker interrogation demonstrated normal device function. Appropriate lead measurements noted. Left pectoral incision well healed without signs of infection noted. Battery function-2.98V, 4.2-4.9 years remaining battery life to VALDO. Presenting rhythm-ASVS (SR). AP-16% YARN DUMPER-<1%. 5 mode switch episode recorded, iegm's AT/AF. No ventricular high rate episodes noted. No programming changes made today. See scanned report. Bryan remote f/u 01/25/2025. Office pacemaker f/u 02/22/2026. Selina Herbert, RN us Houston Alatorre MD CV CARDIAC [...] and sensing thresholds. Presenting rhythm: -AP/VS AP-8.4%, YARN DUMPER-< 1% 34 AMS episodes noted, longest episode was 2 hours and 21 minutes in duration, IEGM demonstrates AFib. AF [place] < 1%. 1 Ventricular high rate episodes detected, IEGM demonstrates NSVT for 2 seconds. Medications: Xarelto 20 mg, ASA 81 mg, metoprolol 25 mg See scanned report. Office pacemaker follow up: 10/20/24 Mangham remote f/u 5 months. Yadiel Whitten RN Houston Alatorre MD CV CARDIAC SERVICES PROC EDURES Final Result from Last 3 Months Insurance AETNA MEDICARE [facility] MEDIC[facility] Address: [facility] [id number] [place] [address] AETNA MEDICARE Care Teams Packing Line Operator Relationship Specialty Start Date End Date Salima Mcmillan DO PCP - General Family Medicine 05/19/19
== END 2024-11-22 13:24 | disposition home or self-care (01) ==
LOC: ANHCARD 13:26
PROVIDERS: PCP Family Medicine; Visit Provider Anesthesiology
DX: I10 Essential (primary) hypertension (principal); Z01.818 Encounter for other preprocedural examination
CPT/HCPCS: 93005

== ENCOUNTER 2024-12-09 07:53 | Outpatient (NON) | payer MEDICARE, SELFPAY ==
--- NOTE | 2024-12-09 | S_PTH ---
PATIENT: Aurelio Wright LOC: [facility]#:[id number] AGE/SX: 74/F ROOM: RE12/09/[address]: Maricarmen Grady MD : 1950 BED: DIS: 12/09/2024 SPEC #: [id number] RECD: 12/10/24 08:21 STATUS: DHRUV RECassia #: [id number] MAICO: 12/09/24 00:[address]: Maricarmen Grady DEPT: [facility] Surgical RECD BY: Nazario Beckford ENTERED: 12/10/24 08:22 SP TYPE: Surgical OTHR DR: Salima Mcmillan DO Tissues: A - Mass Procedures: Hematoxylin and Eosin Stain Gross and Microscopic Level 3
--- OUTSIDE RECORDS SUMMARY | 2024-12-10 07:56 | XMS_ITS | Clinical Summary ---
Author Organization [facility] [address] Address [address] [place] [address] Care Team Providers Care Map Compiler Name Role Phone Salima Mcmillan Primary Care Provider [phone] Allergies Active Allergy Reactions Criticality Noted Date [...] Dx; SSS. DOI 03/04/[address] Alatorre. [place] remote monitoring Q3 mo, office pacer checks Q1 yr. Battery Advisory Safety Notification-possible incomplete mixing of epoxy in the manufacturing process. 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 DOI 03/04/[address] Alatorre. [place] remote monitoring Q3 mo, office pacer checks Q1 yr. Supervising MD: Dr Josue. Office DDD Pacemaker interrogation demonstrated normal device function. Appropriate lead measurements noted. Left pectoral incision well healed without signs of infection noted. Battery function-2.98V, 4.2-4.9 years remaining battery life to VALDO. Presenting rhythm-ASVS (SR). AP-16% DRILL SETUP OPERATOR-<1%. 5 mode switch episode recorded, iegm's AT/AF. No ventricular high rate episodes noted. No programming changes made today. See scanned report. [place] remote f/u 01/25/2025. Office pacemaker f/u 02/22/2026. Selina Herbert, RN Houston Alatorre MD CV CARDIAC SERVICES PROC EDURES Final Result from Last 3 Months Insurance AETNA MEDICARE [facility] MEDICARE Care Teams Map Compiler Relationship Specialty Start Date End Date Salima Mcmillan DO PCP - General Family Medicine 05/19/19
--- OUTSIDE RECORDS SUMMARY | 2024-12-10 07:56 | XMS_ITS | Clinical Summary ---
Author Organization [facility] Address [address] [place] [address] Care Team Providers Care Tattooer Name Role Phone Emanuel Jones MD Primary Care Provider [phone] Source Comments [facility],non-owned Affiliates and Associated Physician Practices is amultiple site organization consisting of ambulatory clinics and hospital sitesin [place], [place], [place] and [place]. This disclosure is being madepursuant to the Care Everywhere program and may not contain all information available regarding this patient. 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 LIPID PROFILE GUIDELINES Total [...] ORDERABLES Lidia clarke Result Performing Organization Address City/State/[facility] Co de Phone Number [facility] [address] [place] [address] from Last 3 Months or Most Recently Relevant to [place] [address] [employer] [place] [address] Care Teams Tattooer Relationship Specialty Start Date End Date Emanuel Jones MD [address] [place], [place] [id number] PCP - General 02/26/18
== END 2024-12-09 07:54 | disposition home or self-care (01) ==
PROVIDERS: PCP Family Medicine; Visit Provider Plastic Surgery
DX: M79.89 Other specified soft tissue disorders (principal)
CPT/HCPCS: 88304

== ENCOUNTER 2024-12-09 09:04 | Day surgery (SDC) | payer MEDICARE, SELFPAY ==
--- NOTE | 2024-12-09 07:04 | PM.HPGS ---
History of Present Illness History of Present Illness Chief complaint: Mass Right Index Finger Narrative: Patient seen and examined in pre-operative holding area. No interval change in medical history or symptoms. Patient recalls previous discussion of benefits and alternatives to procedure. Continues to desire to proceed with right index finger mass excision . Reviewed procedure, post-op expectations and risks including but not limited to bleeding, infection, injury to tendon/nerve/vessel, decreased hand function, stiffness, RSD, no change or worsening of symptoms, recurrence. I discussed the possible use of assistants and their participation in the case. Patient stated understanding and signed the consent form wishing to proceed. Review of Systems Review of Systems: All systems reviewed & are unremarkable except as noted in HPI and below PMFSH Past Medical History Medical History Pacemaker (~2017) Bleeding ulcer (~2017) GI bleed due to NSAIDs Dysplasia of cervix Bone spur Right big toe 2004 Left big toe 2009 Heart murmur Hepatitis C antibody test negative (05/16/17) Surgical History Surgical History S/P placement of cardiac pacemaker S/P cataract surgery (~05/2021) right eye H/O cone biopsy of cervix (~1986) H/O mitral valve repair (~2012) Status post left foot surgery H/O colonoscopy Family History Family History Mother Carcinoma of colon Hypertension Sibling Hypertension Family history of irritable bowel syndrome Grandparent Family history of cardiovascular disease Diabetes mellitus Father Hypertension Family history of elevated blood lipids Family history of coronary artery disease Other Family history of congenital heart disease Social History Social History Smoking status: Never smoker Alcohol intake: current Substance use: never Substance use type: does not use Lack of Transportation: No Lack of Food: Never True Current Housing: I Have Housing Concerned About Future Housing: No Difficulty Paying Gas/Electric Bills: No Difficulty Paying for Meds: No Currently Unemployed: No Education: Master's Degree or Higher Difficulty w/ Childcare or Family Care: No Living arrangements: with family Occupation/Education: retired Gender identity (if verbalized by the patient): Female Meds Home Medications and Allergies Home Medications ?Medication ?Instructions ?Recorded ?Confirmed ?Type aspirin 81 mg tablet,delayed 81 mg PO DAILY 06/17/19 11/19/24 History release loratadine 10 mg tablet (Claritin) 10 mg PO DAILY 06/17/19 12/09/24 History cholecalciferol (vitamin D3) 25 25 mcg PO DAILY 03/10/20 12/09/24 History mcg (1,000 unit) capsule calcium 600 mg (as carbonate)-vit 1 tablet PO DAILY 08/09/20 11/19/24 History D3 10 mcg (400 unit) chewable tablet (Calcium 600 with Vitamin D3) multivitamin 1 tablet PO DAILY 08/09/20 12/09/24 History rivaroxaban 20 mg tablet (Xarelto) 20 mg PO DAILY 04/09/22 12/09/24 History metoprolol tartrate 25 mg tablet See Rx Instructions .Route 04/25/24 12/09/24 Rx .COMPLEX #90 tabs atorvastatin 20 mg tablet (Lipitor) 20 mg PO QHS #90 tabs 10/19/24 11/19/24 Rx Allergies Allergy/AdvReac Type Severity Reaction Status Date / Time ibuprofen AdvReac Unknown internal Verified 12/09/24 09:29 bleeding NSAIDS (Non-Steroidal AdvReac Unknown Gastric Verified 12/09/24 09:29 Anti-Inflamma ulcer with hemorrhage Exam Narrative: unchanged Assessment and Plan Assessment and plan (1) Localized swelling, mass and lump, right upper limb: Code(s): R22.31 - Localized swelling, mass and lump, right upper limb Status: Acute Assessment and Plan: cont as above
--- NOTE | 2024-12-09 07:04 | W.PM.PROC2 ---
Procedure Note - Detailed Date of Procedure 12/09/24 Pre-op Diagnosis Mass Right Index Finger Post-op Diagnosis Same Procedure Performed right index finger mass excision Surgeon Maricarmen Grady MD Pharmacy Retail Support Specialist tiffany sharma pa-c Anesthesia MAC Description of Procedure INFORMED CONSENT: The patient was seen and examined and marked in the pre-op area.? The patient signed the consent form. PROCEDURE IN DETAIL:The patient taken back to OR on the stretcher in supine position. Time out performed with anesthesia, surgeon and staff agreeing on patient's name site and surgery to be performed SCDs were placed on the lower extremities and inflated. A tourniquet was placed on {right} upper extremity and antibiotics given IV After anesthesia administered sedation I injected {4}cc 1%lidoand 0.5% marcaine plain for digital block in the palm The?{right upper extremity}?was prepped and draped in sterile fashion the??{right upper extremity} was? exsanguinated proximal to mass with Esmarch bandage and tourniquet inflated to 250mmHg I proceeded with making a Bhupendra incision over the right index finger mass through skin and dermis with a 15 blade scalpel. Skin flaps were elevated. I spread through subcutaneous tissue down through [place] ligament and proceeded with circumferential dissection of this lipomatous mass that appeared to be somewhat in close proximity to the radial digital nerve but not clearly adherent to it. . The neurovascular bundles were identified and protected throughout the procedure. I irrigated with normal saline and closure with 4-0 chromic. A dressing of xeroform, 4x4, monica, and tube gauze was applied after the tourniquet was let down noting the finger was warm and well perfused. The patient was then awaken from anesthesia and transferred to the recovery room in stable condition.? Complications - none EBL- 0cc Disposition - home in stable condition Tiffany Sharma PA-C was essential for positioning, retraction, closure and dressing placement [facility] Billing Surgery - Charge Forward: Surgery Billing ([id number] for tiffany)
--- OUTSIDE RECORDS SUMMARY | 2024-12-09 09:21 | XMS_ITS | Clinical Summary ---
Author Organization [facility] [address] Address [address] [place] [address] Care Team Providers Care Biodiesel Product Manager Name Role Phone Salima Mcmillan Primary Care Provider [phone] Allergies Active Allergy Reactions Criticality Noted Date [...] Dx; SSS. DOI 03/04/[address] Alatorre. [place] remote monitoring Q3 mo, office pacer checks Q1 yr. Battery Advisory Safety Notification-possible incomplete mixing of epoxy in the manufacturing process. S/P mitral valve repair 02/25/2017 Encounters Date Type Department Care Team Description 11/22/2024 Telephone [facility] Medical [facility] Cardiology [address] [place] [phone] Houston Alatorre MD 10/20/2024 11:30 AM CDT Ancillary Procedure [facility] Cardiology [address] [place] [phone] Sick sinus syndrome (HCC); Cardiac pacemaker in situ from Last 3 Months Medical History Medical History Date Comments Hypertension Hypertension Hx Other Medical dyslipidemia Heart disease Family History Medical History Relation Name Comments Coronary artery disease Father Varinder Verónica nary Artery Bypass Graft; Heart failure Father Varinder Congestive Hea rt Failure; Cause of : Congestive Heart Failure Hypertension Father Varinder Heart attack Maternal Grandfather Robbin Myocard ial Infarction; Cause of : Myocardial Infarction Heart attack Maternal Grandmother Melina Myocard ial Infarction; Cause of : Myocardial Infarction Hypertension Mother Carmen Relation Name Status Comments Father Varinder Maternal Grandfather Robbin Maternal Grandmother Melina Mother Carmen Social History Tobacco Use Types Packs/Day Years Used Date Smoking Tobacco: Never Smokeless Tobacco: Never Alcohol Use Standard Drinks/Week Comments Yes 0 (1 standard drink = 0.6 oz pur e alcohol) Comments Unknown Sex and Gender Information Value Date Recorded Sex Assigned at Not on file 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 Gender Identity Not on file Sexual Orientation [...] Health Maintenance Due Date Last Done Comments Depression Screening 1948 Fall Risk Assessment 1950 Hepatitis C Screening 1950 Osteoporosis Screening-Bone Density Scan 1950 DTaP/Tdap/Td Vaccine (1 - Tdap) 11/30/1959 Hepatitis B Screening 1966 Well Visit 65+ 2013 Pneumococcal vaccine 65+ (2 of 2 - PPSV23) 02/24/2016 02/23/2015 Zoster Vaccine (2 of 2) 04/08/2019 02/11/2019 Influenza Vaccine (#1) 2025 3, 02/18/2019, 01/19/2018, Additional history exists Medical Devices Implanted Type Area Food Checker Device Identifier Shelf Expiration Date Model / Serial / Lot Pacemaker-02/04 Implanted:02/04 by Houston Alatorre MD (Quantity not on file) Pacemaker Chest [facility] [employer] SSS Procedures Procedure Name Priority Date/Time Associated Diagnosis Comments DEVICE CHECK - IN OFFICE Routine 10/20/2024 11:19 AM CDT Sick sinus syndrome (HCC) Cardiac pacemaker in situ from Last 3 Months Results * DEVICE CHECK - IN OFFICE (10/20/2024 11:19 AM CDT) Anatomical Region Laterality Modality Other Narrative 10/26/2024 12:[address] [employer] Dual Pacemaker. Dx; SSS. DOI 03/04/[address] Alatorre. [place] remote monitoring Q3 mo, office pacer checks Q1 yr. Supervising MD: Dr Josue. Office DDD Pacemaker interrogation demonstrated normal device function. Appropriate lead measurements noted. Left pectoral incision well healed without signs of infection noted. Battery function-2.98V, 4.2-4.9 years remaining battery life to VALDO. Presenting rhythm-ASVS (SR). AP-16% MANAGER MUTUAL FUND-<1%. 5 mode switch episode recorded, iegm's AT/AF. No ventricular high rate episodes noted. No programming changes made today. See scanned report. [place] remote f/u 01/25/2025. Office pacemaker f/u 02/22/2026. Selina Herbert, RN Houston Alatorre MD CV CARDIAC SERVICES PROC EDURES Final Result from Last 3 Months Insurance [employer] MEDICARE [facility] MEDICARE Care Teams Biodiesel Product Manager Relationship Specialty Start Date End Date Salima Mcmillan DO PCP - General Family Medicine 05/19/19
--- OUTSIDE RECORDS SUMMARY | 2024-12-09 09:21 | XMS_ITS | Clinical Summary ---
Author Organization [facility] Address [address] [place] [address] Care Team Providers Care Transaction Advisory Services Manager Name Role Phone Emanuel Jones MD Primary Care Provider [phone] Source Comments [facility] [employer],non-owned Affiliates and Associated Physician Practices is amultiple site organization consisting of ambulatory clinics and hospital sitesin [place], [place], [place] and [place]. This disclosure is being madepursuant to the Care Everywhere program and may not contain all information available regarding this patient. 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 LIPID PROFILE GUIDELINES Total [...] ORDERABLES Lidia clarke Result Performing Organization Address City/State/[facility] Co de Phone Number [facility] [address] [place] [address] from Last 3 Months or Most Recently Relevant to Health [place] [address] [employer] [address] Care Teams Transaction Advisory Services Manager Relationship Specialty Start Date End Date Emanuel Jones MD [address] [place], [place] [id number] PCP - General 02/26/18
[2024-12-09 09:46] VITALS: BMI 27.1
[2024-12-09 09:47] VITALS: BP 137/87; PULSE 59; RESP 16; TEMP 36.6; O2SAT 96
[2024-12-09] MEDS: ACETAMINOPHEN 500 MG TABLET 1000 MG PO (10:04)
[2024-12-09] MEDS: LACTATED RINGERS 1,000 ML 30 ML IV CONT (10:04)
--- NOTE | 2024-12-09 10:06 | WPDANESEPPF ---
Anes - Initial Pre Proc Eval Procedure: Operation Date: 12/09/24 11:00 Proposed Procedures p Excision Mass Right Index Finger - Maricarmen Grady MD Date/Time: 12/09/24 10:06 Surgeon: Maricarmen Grady MD Pre Op Diagnosis: Mass Right Index Finger Patient Data Age: 74 Gender: F Height: 1.5 m Weight: 60.8 kg Last Vital Signs Temp 97.8 F 12/09/24 09:47 Pulse 59 L 12/09/24 09:47 Resp 16 12/09/24 09:47 BP 137/87 12/09/24 09:47 Pulse Ox 96 12/09/24 09:47 O2 Del Method Room Air 12/09/24 09:47 Allergies Allergy/AdvReac Type Severity Reaction Status Date / Time ibuprofen AdvReac Unknown internal Verified 12/09/24 09:29 bleeding NSAIDS (Non-Steroidal AdvReac Unknown Gastric Verified 12/09/24 09:29 Anti-Inflamma ulcer with hemorrhage Home Medications ?Medication ?Instructions ?Recorded ?Confirmed ?Type aspirin 81 mg tablet,delayed 81 mg PO DAILY 06/17/19 11/19/24 History release loratadine 10 mg tablet (Claritin) 10 mg PO DAILY 06/17/19 12/09/24 History cholecalciferol (vitamin D3) 25 25 mcg PO DAILY 03/10/20 12/09/24 History mcg (1,000 unit) capsule calcium 600 mg (as carbonate)-vit 1 tablet PO DAILY 08/09/20 11/19/24 History D3 10 mcg (400 unit) chewable tablet (Calcium 600 with Vitamin D3) multivitamin 1 tablet PO DAILY 08/09/20 12/09/24 History rivaroxaban 20 mg tablet (Xarelto) 20 mg PO DAILY 04/09/22 12/09/24 History metoprolol tartrate 25 mg tablet See Rx Instructions .Route 04/25/24 12/09/24 Rx .COMPLEX #90 tabs atorvastatin 20 mg tablet (Lipitor) 20 mg PO QHS #90 tabs 10/19/24 11/19/24 Rx tramadol 50 mg tablet 50 mg PO Q6H PRN pain #12 tabs 12/09/24 Rx Patient hx anesthesia problems: none Family hx anesthesia problems: none Results Review: All pre-operative results and documents have been reviewed as part of the pre-operative evaluation. [facility] Past Medical History Medical History Pacemaker (~2017) Bleeding ulcer (~2017) GI bleed due to NSAIDs Dysplasia of cervix Bone spur Right big toe 2004 Left big toe 2009 Heart murmur Hepatitis C antibody test negative (05/16/17) Surgical History Surgical History S/P placement of cardiac pacemaker S/P cataract surgery (~05/2021) right eye H/O cone biopsy of cervix (~1986) H/O mitral valve repair (~2012) Status post left foot surgery H/O colonoscopy Family History Family History Mother Carcinoma of colon Hypertension Sibling Hypertension Family history of irritable bowel syndrome Grandparent Family history of cardiovascular disease Diabetes mellitus Father Hypertension Family history of elevated blood lipids Family history of coronary artery disease Other Family history of congenital heart disease Social History Social History Smoking status: Never smoker Alcohol intake: current Substance use: never Substance use type: does not use Lack of Transportation: No Lack of Food: Never True Current Housing: I Have Housing Concerned About Future Housing: No Difficulty Paying Gas/Electric Bills: No Difficulty Paying for Meds: No Currently Unemployed: No Education: Master's Degree or Higher Difficulty w/ Childcare or Family Care: No Living arrangements: with family Occupation/Education: retired Gender identity (if verbalized by the patient): Female Anes - Eval Final PreProcedure Day of Procedure 12/09/24 10:06 Heart: murmur Lungs: clear to auscultation Airway: Mallampati scale class II Last oral intake: >/= 8 hours ASA classification: III Anesthetic plan: proceed Anesthesia type and monitoring: monitored anesthesia care Results Review: All pre-operative results and documents have been reviewed as part of the pre-operative evaluation. Informed Consent: The patient's anesthetic plan and its attendant risks and benefits were discussed with the patient/family/POA. Questions were solicited and answers provided to the satisfaction of the patient/family/POA.
[2024-12-09] MEDS: LIDOCAINE 1% LOCAL INJ 20 ML VIAL 2.5 ML INFILTRATE (10:26)
[2024-12-09 10:43] VITALS: BP 112/70; PULSE 60; RESP 14; O2SAT 94
--- NOTE | 2024-12-09 10:51 | WPDANESPN ---
Anes - Prog Note Post-Op Date/Time: 12/09/24 10:51 Vital Signs: Last Vital Signs Temp 97.8 F 12/09/24 09:47 Pulse 59 L 12/09/24 09:47 Resp 16 12/09/24 09:47 BP 137/87 12/09/24 09:47 Pulse Ox 96 12/09/24 09:47 O2 Del Method Room Air 12/09/24 09:47 Pain Score (VAS): no Patient Feedback: Patient satisfied with anesthetic care.
[2024-12-09 11:10] VITALS: BP 111/73; PULSE 59; RESP 16; O2SAT 99
[2024-12-09 11:30] VITALS: BP 124/73; PULSE 62; RESP 16; O2SAT 100
== END 2024-12-09 11:40 | disposition home or self-care (01) ==
LOC: ASC 09:16
PROVIDERS: PCP Family Medicine; Visit Provider Plastic Surgery
PROC: (CPT 26116; principal; 2024-12-09 11:00)
DX: D17.39 Benign lipomatous neoplasm of skin and subcutaneous tissue of other sites (principal)
CPT/HCPCS: 26116